=== PATIENT | male | born 1985 | race Caucasian/White ===

== ENCOUNTER 2016-05-03 02:08 | Emergency (ER) | payer BC, OTHER ==
[~2016-05-03] VITALS: Ht 177.8 cm; Wt 64.0 kg
[2016-05-03 02:10] VITALS: Ht 177.8 cm; Wt 64.0 kg
[2016-05-03] MEDS ORDERED: CLINDAMYCIN 300 MG INJ IM ONE (03:30)
[2016-05-03] MEDS ORDERED: IBUP-1542 PO (03:44)
[2016-05-03] MEDS ORDERED: CLIN-73 PO (03:44)
[2016-05-03] MEDS ORDERED: ULT50 PO (03:56)
--- NOTE | 2016-05-03 04:08 | ERD ---
ER Documentation Chief Complaint Date/Time DATE: 05/03/16 TIME: 04:05 Chief Complaint lower lip abscess x 15 hrs HPI 30-year-old male presents here in emergency department for complaints of left lower lip swelling for 1 day. Patient states that there was a pimple and it, he was picking on it, now it became red and swollen. Patient describes the pain on affected area as throbbing pain, 6/10 scale, is worse upon touching the area. Patient denies any fever or chills. Patient denies any redness and swelling in other parts of the body. She did not take any medications to help her symptoms. ROS All systems reviewed and are negative except as per history of present illness. Medications Home Meds Active Scripts Tramadol HCl (Tramadol HCl) 50 Mg Tablet, 50 MG PO Q6 Y for PAIN, #20 TAB Prov:JL STEVENS [employer] 05/03/16 Ibuprofen* (Motrin*) 600 Mg Tab, 600 MG PO Q6H Y for PAIN AND OR ELEVATED TEMP, #30 TAB Prov:JL STEVENS [employer] MANAGER 05/03/16 Clindamycin Hcl* (Clindamycin Hcl*) 300 Mg Capsule, 300 MG PO TID for 10 Days, CAP Prov:JL STEVENS [employer] MANAGER 05/03/16 Allergies Allergies: Coded Allergies: peanut (Verified Allergy, Unknown, 05/03/16) PMhx/Soc Medical and Surgical Hx: pt denies Medical Hx, pt denies Surgical Hx History of Surgery: No Anesthesia Reaction: No Hx Neurological Disorder: No Hx Respiratory Disorders: No Hx Cardiac Disorders: No Hx Psychiatric Problems: No Hx Miscellaneous Medical Probl: No Hx Alcohol Use: Yes (socially) Hx Substance Use: No Hx Tobacco Use: No Smoking Status: Never smoker FmHx Family History: No coronary disease, No diabetes, No other Physical Exam Vitals Vital Signs Date Time Temp Pulse Resp B/P Pulse Ox O2 Delivery O2 Flow Rate FiO2 05/03/16 02:10 98.4 64 16 163/97 98 Physical Exam GENERAL: The patient is well developed and appropriate for usual state of health, in no apparent distress. HEENT: Atraumatic. Ears: Normal tympanic membrane, no erythema or bulging. No ear canal swelling. No ear discharge. Nose: normal nasal turbinates, no erythema or swelling. Normal nasal discharge. Throat: oropharynx clear. No tonsillar swelling or tonsillar exudates. No lymphadenopathy. Noted swelling on the left lower lip area, mild tenderness on palpation, no fluctuance noted, mild induration noted. CHEST: Clear to auscultation bilaterally. There are no rales, wheezes or rhonchi. HEART: Regular rate and rhythm. No murmurs, clicks, rubs or gallops. No S3 or S4. ABDOMEN: Soft, nontender and nondistended. Good bowel sounds. No rebound or guarding. No gross peritonitis. No gross organomegaly or masses. No Chen sign or McBurney point tenderness. BACK: No midline or flank tenderness. EXTREMITIES: Equal pulses bilaterally. There is no peripheral clubbing, cyanosis or edema. No focal swelling or erythema. Full range of motion. Grossly neurovascularly intact. NEURO: Alert and oriented. Cranial nerves 2-12 intact. Motor strength in all 4 extremities with 5/5 strength. Sensation grossly intact. Normal speech and gait. SKIN: There is no apparent rash or petechia. The skin is warm and dry. HEMATOLOGIC AND LYMPHATIC: There is no evidence of excessive bruising or lymphedema. No gross cervical, axillary, or inguinal lymphadenopathy. Results 24 hrs Current Medications Medications (Trade) Dose Ordered Sig/Mable Route PRN Reason Start Time Stop Time Status Last Admin Dose Admin Clindamycin Phosphate (Cleocin) 600 mg ONCE ONCE IM 05/03/16 03:30 05/03/16 03:31 DC 05/03/16 03:45 Clindamycin was given here in emergency department for treatment for infection, tolerated medication well. Procedures/MDM Medical decision making: Patient's symptoms most likely consistent with a the abscess. At this time, it is not fluctuant, no incision and drainage necessary at this time. No symptoms of sepsis at this time. Patient appears well and is hemodynamically stable. Prescription was given for ibuprofen, clindamycin, tramadol, is advised to follow-up with primary care doctor in 1-2 days for reevaluation of symptoms and recheck. Patient was advised to return to emergency department for worsening symptoms. Departure Diagnosis: Primary Impression: Soft tissue abscess Condition: Stable Patient Instructions: Abscess, Antiobiotic Treatment Only JL STEVENS NP May 03, 2016 04:08
== END 2016-05-03 04:05 | disposition home or self-care (01) ==
LOC: FTE 02:08
DX: K13.0 Diseases of lips (principal)
CPT/HCPCS: 96372